=== PATIENT | male | born 1985 | race African-American/Black ===

== ENCOUNTER 2017-03-10 07:39 | Emergency (ER) | payer BC ==
[~2017-03-10] VITALS: Ht 182.9 cm; Wt 91.0 kg
[2017-03-10] MEDS ORDERED: KETOROLAC 30MG/ML VIAL IV STA (08:02)
[2017-03-10 08:26] LABS: BASOPHILS % 0.4 % (0.0-2.0); EOSINOPHILS % 1.7 % (0.0-5.0); HEMOGLOBIN. 14.3 g/dL (14.0-18.0); LYMPHOCYTES % 13.7 % (20.0-50.0); MEAN CORPUSCULAR HEMOGLOBIN 28.6 pg (28.0-32.0); MEAN CORPUSCULAR VOLUME 85.5 fL (80.0-94.0); MEAN PLATELET VOLUME 7.4 fl (7.4-10.4); MONOCYTES % 5.4 % (2.0-8.0); NEUTROPHILS % 78.8 % (40.0-76.0); PLATELET 301 x1000/uL (130-400); RED BLOOD CELL COUNT 5.02 mill/uL (4.7-6.1); RED CELL DISTRIBUTION WIDTH 14.9 % (11.6-14.6)
[2017-03-10 08:35] LABS: INR 1.1; PARTIAL THROMBOPLASTIN TIME 23.6 sec (23.4-31.0); PROTHROMBIN TIME 11.5 sec (9.4-11.6)
[2017-03-10 08:40] LABS: CHLORIDE 107 mEq/L (98-107)
[2017-03-10 10:33] LABS: CLARITY URINE CLEAR (CLEAR); COLOR URINE YELLOW (YELLOW); KETONES URINE TRACE (NEGATIVE); LEUKOCYTE ESTERASE URINE NEGATIVE (NEGATIVE); NITRITE URINE NEGATIVE (NEGATIVE); OCCULT BLOOD URINE NEGATIVE (NEGATIVE); PH URINE 5.5 (4.5-8.0); PROTEIN URINE NEGATIVE (NEGATIVE); SPECIFIC GRAVITY URINE 1.024 (1.005-1.030)
[2017-03-10 13:14] VITALS: BP 139/85
== END 2017-03-10 16:53 | disposition home or self-care (01) ==
LOC: ER 07:52
DX: S42.91XA Fracture of right shoulder girdle, part unspecified, initial encounter for closed fracture (principal); S00.83XA Contusion of other part of head, initial encounter; S20.20XA Contusion of thorax, unspecified, initial encounter; F17.200 Nicotine dependence, unspecified, uncomplicated; V43.52XA Car driver injured in collision with other type car in traffic accident, initial encounter; Y93.89 Activity, other specified; Y99.8 Other external cause status; Y92.89 Other specified places as the place of occurrence of the external cause
CPT/HCPCS: 36415; 70450; 71045; 72125; 73030; 73060; 73090; 73130; 73552; 80053; 81003; 85025; 85610; 85730; 86850; 86900; 86901; 96374; 99285; J1885